=== PATIENT | female | born 1985 | race Caucasian/White ===

== ENCOUNTER → 2016-12-26 | Outpatient (CLI) | payer OTHER ==
[~2016-12-26] MED LIST: AUGMENTIN875 MG PO; CORGARD40 MG PO; CORGARD80 MG PO; Corgard PO; DEPLIN15 MG PO; EFFEXOR XR150 MG; EFFEXOR XR150 MG PO; Effexor XR PO; FLEXERIL5 MG PO; Flexeril PO; KEFLEX500 MG PO; MELATONIN3 MG PO; Melatonin PO; Protonix PO; TRILAFON2 MG PO; ZOFRAN4 MG PO; Zithromax PO
== END | disposition home or self-care (01) ==
LOC: NUC 08:14
DX: K31.89 Other diseases of stomach and duodenum (principal)
CPT/HCPCS: 78264; A9541

== ENCOUNTER 2017-03-31 14:24 | Emergency (ER) | payer OTHER ==
[~2017-03-31] VITALS: Ht 160 cm; Wt 116.9 kg
[2017-03-31] MEDS ORDERED: ERYTHROMYC1 APPLICAT BOTH EYES (15:58)
[2017-03-31 16:07] VITALS: BP 116/82
== END 2017-03-31 16:10 | disposition home or self-care (01) ==
LOC: EME 14:24
DX: H00.015 Hordeolum externum left lower eyelid (principal); F84.0 Autistic disorder; F90.9 Attention-deficit hyperactivity disorder, unspecified type; Z88.8 Allergy status to other drugs, medicaments and biological substances
CPT/HCPCS: 99281; 99283

== ENCOUNTER 2017-06-26 19:10 | Emergency (ER) | payer OTHER ==
[~2017-06-26] VITALS: Ht 160 cm; Wt 112.9 kg
[~2017-06-26 19:10] MED LIST changes: +ERYTHROMYC1 APPLICAT BOTH EYES
[2017-06-26 20:06] LABS: HEMATOCRIT 40.3 % (36.0-46.0); MCH 29.4 PG (29.0-34.0); MCHC 34.7 G/DL (30.0-36.0); MCV 84.7 FL (83-99); PLATELET COUNT 314 K/uL (156-360); RBC DIS.WIDTH-CV 13.3 % (11.8-14.6); RBC DIS.WIDTH-SD 41.3 % (39-53); RED BLOOD COUNT 4.76 M/uL (3.80-5.20); WHITE BLOOD COUNT 11.1 K/uL (4.1-10.2)
[2017-06-26 20:20] LABS: CHLORIDE 113 mEq/L (99-109); POTASSIUM 3.8 mEq/L (3.7-5.4); SODIUM 142 mEq/L (136-147)
[2017-06-26 20:21] LABS: GLUCOSE 90 mg/dL (70-99)
[2017-06-26 20:25] LABS: CREATININE 0.7 mg/dL (0.6-1.3); GFR ESTIMATE (CALCULATED) > 59 mL/min/
[2017-06-26 20:26] LABS: UREA NITROGEN (BUN) 22 mg/dL (9-23)
[2017-06-26 20:30] LABS: TROP-I INTERPRETATION NEGATIVE; TROPONIN-I < 0.01 ng/mL (0.0-0.30)
[2017-06-26 23:38] LABS: TROP-I INTERPRETATION NEGATIVE; TROPONIN-I < 0.01 ng/mL (0.0-0.30)
[2017-06-27 01:45] VITALS: BP 111/65
== END 2017-06-27 01:49 | disposition home or self-care (01) ==
LOC: EME 19:10
PROVIDERS: Emergency Medicine
DX: R07.89 Other chest pain (principal); F41.9 Anxiety disorder, unspecified; F32.9 Major depressive disorder, single episode, unspecified; Z90.49 Acquired absence of other specified parts of digestive tract; Z90.710 Acquired absence of both cervix and uterus; Z88.8 Allergy status to other drugs, medicaments and biological substances
CPT/HCPCS: 71046; 71275; 80048; 84484; 85027; 85379; 93005; 99281; 99285